=== PATIENT | male | born 1995 | race African-American/Black ===

== ENCOUNTER 2019-04-23 12:00 | Emergency (ER) | payer BC, MEDICAID ==
[~2019-04-23] VITALS: Ht 162 cm; Wt 80.0 kg
--- NOTE | 2019-04-23 12:24 | ED Chest Pain ---
General Stated Complaint: CHEST PAIN History of Present Illness Date Seen by Provider: Apr 23, 2019 Time Seen by Provider: 12:21 Initial Comments 24-year-old male brought in by family, is somewhat dramatic complaining of left chest pain started last evening with pain and feeling as though he can't breathe adequately pleuritic pain but also SOB there has been no fall or injury apparently he took an unknown pill last night and the family is feeling that it's related to this he won't give any further information and avoids eye contact does have asthma, denies any current problem with asthma no recent fever or cough denies any similar such episode in the past Allergies and Home Medications Allergies Coded Allergies: No Known Drug Allergies (Unverified , 04/23/19) Patient Home Medication List Home Medication List Reviewed: Yes Review of Systems Review of Systems Constitutional: No fever EENTM: No Symptoms Reported Respiratory: SOA at Rest Cardiovascular: Chest Pain Gastrointestinal: No Symptoms Reported Genitourinary: No Symptoms Reported Physical Exam Vital Signs Vital Signs - First Documented 04/23/19 12:00 Temp 36.3 Pulse 94 Resp 18 B/P (MAP) 132/72 (92) O2 Delivery Room Air Capillary Refill : Height, Weight, BMI Height: '" Weight: lbs. oz. kg; BMI Method: General Appearance: Other (unclear whether pt in some distress) HEENT: PERRL/EOMI, Pharynx Normal Neck: Supple Respiratory: Lungs Clear, Other (+/- left ant chest wall tender) Cardiovascular: Regular Rate, Rhythm Gastrointestinal: Normal Bowel Sounds, Non Tender, Soft Extremity: Non Tender, No Calf Tenderness; No Swelling Progress/Results/Core Measures Results/Orders Lab Results Laboratory Tests Test 04/23/19 12:04 04/23/19 12:20 04/23/19 13:52 Range/Units Urine Opiates Screen NEGATIVE NEGATIVE Urine Oxycodone Screen NEGATIVE NEGATIVE Urine Methadone Screen NEGATIVE NEGATIVE Urine Propoxyphene Screen NEGATIVE NEGATIVE Urine Barbiturates Screen NEGATIVE NEGATIVE Ur Tricyclic Antidepressants Screen NEGATIVE NEGATIVE Urine Phencyclidine Screen NEGATIVE NEGATIVE Urine Amphetamines Screen POSITIVE H NEGATIVE Urine Methamphetamines Screen POSITIVE H NEGATIVE Urine Benzodiazepines Screen NEGATIVE NEGATIVE Urine Cocaine Screen NEGATIVE NEGATIVE Urine Cannabinoids Screen NEGATIVE NEGATIVE White Blood Count 7.6 4.3-11.0 10^3/uL Red Blood Count 5.37 4.35-5.85 10^6/uL Hemoglobin 16.0 13.3-17.7 G/DL Hematocrit 56 H 40-54 % Mean Corpuscular Volume 85 80-99 FL Mean Corpuscular Hemoglobin 30 25-34 PG Mean Corpuscular Hemoglobin Concent 35 32-36 G/DL Red Cell Distribution Width 12.0 10.0-14.5 % Platelet Count 298 130-400 10^3/uL Mean Platelet Volume 9.5 7.4-10.4 FL Neutrophils (%) (Auto) 65 42-75 % Lymphocytes (%) (Auto) 24 12-44 % Monocytes (%) (Auto) 9 0-12 % Eosinophils (%) (Auto) 1 0-10 % Basophils (%) (Auto) 1 0-10 % Neutrophils # (Auto) 4.9 1.8-7.8 X 10^3 Lymphocytes # (Auto) 1.9 1.0-4.0 X 10^3 Monocytes # (Auto) 0.7 0.0-1.0 X 10^3 Eosinophils # (Auto) 0.1 0.0-0.3 10^3/uL Basophils # (Auto) 0.0 0.0-0.1 10^3/uL D-Dimer 0.11 0.00-0.49 UG/ML Sodium Level 142 135-145 MMOL/L Potassium Level 3.3 L 3.6-5.0 MMOL/L Chloride Level 104 98-107 MMOL/L Carbon Dioxide Level 23 21-32 MMOL/L Anion Gap 15 H 5-14 MMOL/L Blood Urea Nitrogen 11 7-18 MG/DL Creatinine 1.14 0.60-1.30 MG/DL Estimat Glomerular Filtration Rate > 60 BUN/Creatinine Ratio 10 Glucose Level 101 70-105 MG/DL Calcium Level 10.8 H 8.5-10.1 MG/DL Troponin I < 0.03 < 0.30 <0.30 NG/ML My Orders Orders - HARLEY HENSON MD Monitor-Rhythm Ecg Trace Only (04/23/19 12:11) Drug Screen Stat (Urine) (04/23/19 12:11) Ekg Tracing (04/23/19 12:13) Iv Heplock-Insert (Order) (04/23/19 12:13) Cbc With Automated Diff (04/23/19 12:13) Troponin I Fs (04/23/19 12:13) Basic Metabolic Panel (04/23/19 12:13) Chest Pa/Lat (2 View) (04/23/19 12:13) Fibrin Degradation Products (04/23/19 12:19) Ketorolac Injection (Toradol Injection) (04/23/19 12:45) Aspirin Chewable Tablet (Baby Aspirin Ch (04/23/19 12:45) Ekg Tracing (04/23/19 13:55) Troponin I Fs (04/23/19 13:55) Troponin I Fs (04/23/19 14:00) Medications Given in ED Current Medications Medications Dose Ordered Sig/Jessica Route Start Time Stop Time Status Last Admin Dose Admin Aspirin 324 mg ONCE ONCE PO 04/23/19 12:45 04/23/19 12:46 DC 04/23/19 12:41 324 MG Ketorolac Tromethamine 30 mg ONCE ONCE IVP 04/23/19 12:45 04/23/19 12:46 DC 04/23/19 12:41 30 MG Vital Signs/I&O 04/23/19 12:00 Temp 36.3 Pulse 94 Resp 18 B/P (MAP) 132/72 (92) O2 Delivery Room Air Progress Progress Note : Progress Note Chest x-ray has been reported as normal hemoglobin is 16 white count 7600 chemistries neg K+ 33 d dimer neg trop neg urine drug screen shows positive for amphetamines and methamphetamine repeat trop @ 2 hours remains neg pt no longer appears to be in any distress Comment EKG shows a sinus rhythm at 63 tall R waves in the lateral chest leads non-specific lateral T wave changes slight ST depression in V4 and 5, uncertain significance 2nd EKG very similar appearance ST dep V4-5 nearly gone Departure Impression Primary Impression: Chest pain Qualified Codes: R07.9 - Chest pain, unspecified Additional Impression: Amphetamine abuse Disposition: 01 HOME, SELF-CARE Condition: Improved Departure-Patient Inst. Decision time for Depature: 14:48 Referrals: NO,LOCAL PHYSICIAN (PCP/Family) Primary Care Physician Patient Instructions: Chest Pain (DC) Add. Discharge Instructions: please avoid amphetamines or meth this can cause chest pain HARLEY HENSON MD Apr 23, 2019 12:24 POS
[2019-04-23 12:33] LABS: BASOPHILS % (AUTO) 1 % (0-10); EOSINOPHILS % (AUTO) 1 % (0-10); HEMATOCRIT 56 % (40-54); LYMPHOCYTES % (AUTO) 24 % (12-44); MEAN CORPUSCULAR HEMOGLOBIN 30 PG (25-34); MEAN CORPUSCULAR HGB CONC 35 G/DL (32-36); MEAN CORPUSCULAR VOLUME 85 FL (80-99); MEAN PLATELET VOLUME 9.5 FL (7.4-10.4); MONOCYTES % (AUTO) 9 % (0-12); NEUTROPHILS # (AUTO) 4.9 X 10^3 (1.8-7.8); NEUTROPHILS % (AUTO) 65 % (42-75); PLATELET COUNT 298 10^3/uL (130-400); WHITE BLOOD COUNT 7.6 10^3/uL (4.3-11.0)
[2019-04-23 12:34] LABS: EOSINOPHILS # (AUTO) 0.1 10^3/uL (0.0-0.3); LYMPHOCYTES # (AUTO) 1.9 X 10^3 (1.0-4.0); MONOCYTES # (AUTO) 0.7 X 10^3 (0.0-1.0)
[2019-04-23 12:35] LABS: AMPHETAMINE SCREEN, URINE POSITIVE (NEGATIVE); BARBITURATE SCREEN URINE NEGATIVE (NEGATIVE); BENZODIAZEPINES SCREEN URINE NEGATIVE (NEGATIVE); CANNABINOID SCREEN, URINE NEGATIVE (NEGATIVE); COCAINE SCREEN URINE NEGATIVE (NEGATIVE); METHADONE STAT NEGATIVE (NEGATIVE); METHAMPHETAMINE SCREEN URINE S POSITIVE (NEGATIVE); OPIATE SCREEN URINE NEGATIVE (NEGATIVE); OXYCODONE STAT NEGATIVE (NEGATIVE); PROPOXYPHENE STAT NEGATIVE (NEGATIVE); TRICYCLIC ANTIDEPRESSANTS SCRE NEGATIVE (NEGATIVE)
--- NOTE | 2019-04-23 12:35 | Diagnostic Imaging Report ---
CHEST PA/LAT (2 VIEW) Indication: Chest pain and difficulty breathing Comparison: None available. Findings: No pulmonary mass or consolidation. No pleural effusion or pneumothorax. Normal heart size and mediastinal contours. Impression: No acute cardiopulmonary process. Dictated by: Dictated on workstation # [id number]
[2019-04-23] MEDS ORDERED: KETOROLAC 30 MG/ML VIAL IVP ONE (12:45)
[2019-04-23] MEDS ORDERED: ASPIRIN 81 MG CHEW (CHILDREN'S ASA) PO ONE (12:45)
[2019-04-23 12:50] LABS: CHLORIDE 104 MMOL/L (98-107); POTASSIUM 3.3 MMOL/L (3.6-5.0); SODIUM 142 MMOL/L (135-145)
[2019-04-23 12:51] LABS: BUN/CREATININE RATIO 10; CALCIUM 10.8 MG/DL (8.5-10.1); CARBON DIOXIDE 23 MMOL/L (21-32); CREATININE SERUM 1.14 MG/DL (0.60-1.30); GFR ESTIMATED > 60; GLUCOSE 101 MG/DL (70-105)
[2019-04-23 14:48] VITALS: BP 121/64
== END 2019-04-23 14:50 | disposition home or self-care (01) ==
LOC: EDUNIT# 12:00 → ER FS 12:02
DX: R07.9 Chest pain, unspecified (principal); F15.10 Other stimulant abuse, uncomplicated; J45.909 Unspecified asthma, uncomplicated
CPT/HCPCS: 36415; 71046; 80048; 80306; 84484; 85025; 85379; 93005; 93041